=== PATIENT | male | born 1955 | race Asian ===

== ENCOUNTER 2025-01-31 09:05 | Emergency (ER) | payer OTHER ==
[2025-01-31 09:22] VITALS: RESP 16; TEMP 97.7; BMI 29.4
[2025-01-31] MEDS: IBUPROFEN 600 MG TABLET (FP) PO ONE (11:45)
[2025-01-31] MEDS ORDERED: IBUPROFEN 600 MG TABLET (FP) PO ONE (11:52)
[2025-01-31 12:06] VITALS: BP 140/90; PULSE 82
== END 2025-01-31 12:06 | disposition home or self-care (01) ==
LOC: JER 09:05
PROC: 2W3RX1Z Immobilization of Left Lower Leg using Splint (ICD-10-PCS; principal; 2025-01-31)
DX: S92.355A Nondisplaced fracture of fifth metatarsal bone, left foot, initial encounter for closed fracture (principal); X50.1XXA Overexertion from prolonged static or awkward postures, initial encounter
CPT/HCPCS: 29515; 73610-TC-LT-FY; 73630-TC-LT; 99283-25